=== PATIENT | male | born 1935 | race Caucasian/White ===

== ENCOUNTER 2019-08-22 12:18 | Inpatient (IN) | payer OTHER ==
[~2019-08-22] VITALS: Ht 177.8 cm; Wt 89.4 kg
[2019-08-22 12:19] VITALS: BP 115/62
[2019-08-22] MEDS ORDERED: LIPITOR40 MG PO (12:34)
[2019-08-22] MEDS ORDERED: ELIQUIS5 MG PO (12:34)
[2019-08-22] MEDS ORDERED: FLOMAX0.4 MG PO (12:35)
[2019-08-22] MEDS ORDERED: LASIX 20 MG TAB20 MG PO (12:35)
[2019-08-22] MEDS ORDERED: FOLIC ACID1 MG PO (12:35)
[2019-08-22] MEDS ORDERED: IMDUR 30 MG TAB30 M1 PO (12:36)
[2019-08-22] MEDS ORDERED: COREG6.25 MG PO (12:36)
[2019-08-22 12:37] LABS: HEMATOCRIT 33.3 % (42.0-52.0); HEMOGLOBIN 11.1 gm/dL (14.0-18.0); MCH 35.4 pg (26.0-34.0); MCHC 33.2 g/dL (28.0-37.0); MCV 106.5 fL (80.0-100.0); RBC 3.13 mil/uL (4.50-6.00); RDW 14.2 % (10.5-14.5); WBC 5.6 thou/uL (4.0-11.0)
[2019-08-22] MEDS ORDERED: LISINOPRIL10 MG PO (12:37)
[2019-08-22] MEDS ORDERED: TYLENOL 8 HOUR650 MG PO (12:39)
[2019-08-22 12:43] LABS: ANION GAP 10 mmol/L (7-16); BUN 39 mg/dL (7-18); CALCIUM 9.3 mg/dL (8.5-10.1); CHLORIDE 103 mmol/L (98-107); CO2 25 mmol/L (21-32); CREATININE 1.3 mg/dL (0.7-1.3); GLUCOSE 129 mg/dL (74-106); POTASSIUM 4.9 mmol/L (3.5-5.1); SODIUM 138 mmol/L (136-145)
[2019-08-22 12:53] LABS: ALBUMIN 3.6 g/dL (3.4-5.0); SGOT 20 U/L (15-37); SGPT 24 U/L (30-65); TOTAL BILIRUBIN 0.7 mg/dL (<0.1-1.0); TOTAL PROTEIN 7.2 g/dL (6.4-8.2); TROPONIN-I <0.06 ng/mL (<0.06)
[2019-08-22 13:28] LABS: ABSOLUTE NEUTROPHILS 3.9 thou/uL (1.4-8.2)
[2019-08-22 13:30] LABS: ANISOCYTOSIS SLIGHT; MACROCYTES SLIGHT; POIKILOCYTOSIS SLIGHT
[2019-08-22 13:31] LABS: BURR CELLS OCCASIONAL; LARGE PLATELETS OCCASIONAL; OVALOCYTES OCCASIONAL
[2019-08-22 13:32] LABS: PLATELET COUNT 131 thou/uL (150-400)
[2019-08-22 14:07] VITALS: BP 109/49
[2019-08-22 14:50] VITALS: BP 103/46
[2019-08-22 15:00] VITALS: BP 120/57
[2019-08-22 19:30] VITALS: BP 110/53
[2019-08-23 04:30] LABS: CREATININE 1.5 mg/dL (0.7-1.3); POTASSIUM 4.7 mmol/L (3.5-5.1)
[2019-08-23 04:32] LABS: HEMATOCRIT 30.2 % (42.0-52.0); HEMOGLOBIN 10.1 gm/dL (14.0-18.0); MCHC 33.4 g/dL (28.0-37.0); MCV 107.7 fL (80.0-100.0); RBC 2.8 mil/uL (4.50-6.00); RDW 14.5 % (10.5-14.5); WBC 8.6 thou/uL (4.0-11.0)
[2019-08-23 06:09] VITALS: BP 108/47
[2019-08-23 08:00] VITALS: BP 113/57
--- NOTE | 2019-08-23 10:19 | EKG ---
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 : 1935 Requested By: Kyle Stevenson Order Number: [id number] MD: Jose Boyd Measurements Intervals [place] Rate: 44 P: [place]: QRS: -11 QRSD: 127 T: 134 QT: 432 QTc: 370 Interpretive Statements Atrial flutter Left bundle branch block Compared to ECG 03/09/2002 11:27:57 Left bundle-branch block now present Sinus rhythm no longer present T-wave abnormality no longer present Possible ischemia no longer present Electronically Signed On 08-23-2019 10:19:30 MENS LOCKER ROOM ATTENDANT by Jose Boyd [email or web address] <ELECTRONICALLY SIGNED> By: Jose Boyd MD 08/23/19 1019 1215 Jose Boyd MD /EPI
[2019-08-23 16:00] VITALS: BP 98/49
[2019-08-23 19:17] VITALS: BP 112/55
[2019-08-24] VITALS (7 sets, daily range): BP systolic 97–174; BP diastolic 43–63
[2019-08-24 04:37] LABS: HEMATOCRIT 30.8 % (42.0-52.0); HEMOGLOBIN 10.3 gm/dL (14.0-18.0); MCH 36.2 pg (26.0-34.0); MCHC 33.3 g/dL (28.0-37.0); MCV 108.5 fL (80.0-100.0); RBC 2.84 mil/uL (4.50-6.00); RDW 14.6 % (10.5-14.5); WBC 9.1 thou/uL (4.0-11.0)
[2019-08-24 04:49] LABS: CALCIUM 9.4 mg/dL (8.5-10.1); POTASSIUM 5.7 mmol/L (3.5-5.1)
--- NOTE | 2019-08-24 08:01 | HC ---
[facility] [place] [address] CONSULTATION Name: SAEID PERALES Room #: 217-P [facility] IN M.R.#: [id number] Admission: 08/22/19 Attend Phys: Matt Raymundo MD Discharge: Date of : 34 Report #: [id number] THIS REPORT FOR: //name// CC: Matt Wadsworth DATE OF SERVICE: 08/23/2019 CARDIOLOGY CONSULTATION INDICATION: Syncope. HISTORY OF PRESENT ILLNESS: This 83-year-old gentleman with a history of, CAD status post PCI, atrial fibrillation, CHF, presenting with syncope. The patient has gait instability, uses a walker at home. He reports sitting on a stool and drinking some water. After that, he found himself on the floor. He did pass out apparently, but does not recall any events leading up to the event. Recently, he has been experiencing dyspnea with mild to moderate levels of physical exertion for the past 2 weeks. He follows with Cardiology at [facility] in [place], Dr. Terrazas. They did a recent echo revealing an EF in the 45% range. A recent nuclear stress test revealed ischemia in the anterior and inferior segments. 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 There is no history of chest pains, palpitations or orthopnea. PAST MEDICAL HISTORY: CAD status post PCI. His anginal equivalent is dyspnea on exertion. Recent nuclear stress test at [facility] was abnormal. History of CHF, hypertension, gait instability, hypercholesterolemia, atrial fibrillation. ALLERGIES: NAPROXEN. MEDICATIONS AT HOME: Include Eliquis 5 mg twice a day, Lipitor 40 mg, Flomax, furosemide 20 mg daily, Imdur 30 mg daily, Coreg 6.25 mg b.i.d., lisinopril 10 mg. SOCIAL HISTORY: Denies tobacco use. FAMILY HISTORY: Negative for premature CAD. REVIEW OF SYSTEMS: A full 10-point review of systems performed. Only the pertinent positives and negatives are described in the HPI. PHYSICAL EXAMINATION: VITAL SIGNS: Blood pressure is 113/60, heart rate is 60 beats per minute. GENERAL APPEARANCE: Elderly appearing male in no acute distress. [facility] [address] [place] [address] CONSULTATION Name: SAEID PERALES Room #: 217-P [facility] IN [facility].#: [id number] Admission: 08/22/19 Attend Phys: Matt Raymundo MD Discharge: Date of : 34 Report #: [id number] HEENT: Normocephalic, atraumatic. Oral mucosa moist. NECK: Supple. LUNGS: Clear to auscultation. CARDIAC: Irregularly irregular, S1, S2 positive. ABDOMEN: Soft, nontender. EXTREMITIES: No cyanosis, trace edema. ECG reveals atrial flutter with a heart rate of 44 beats per minute. LABORATORY VALUES: White count is 8.6, hemoglobin is 10.1, creatinine is 1.5, troponin is negative. ASSESSMENT AND PLAN: 1. Syncope, probably due to sick sinus syndrome. Will most likely require pacemaker implant as he requires beta rae therapy for underlying coronary artery disease. Hold Eliquis. 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 2. Coronary artery disease/PCI, reports dyspnea on exertion for the past 2 weeks This is his anginal equivalent. He was started on Imdur recently. Given his cardiac history, he will require resumption of beta rae therapy once he does undergo pacemaker implant. Hold Coreg for now. 3. Atrial flutter, stable heart rates, on no AV marybel blocking agents at this time. Hold Eliquis. 4. Hypertension, continue with medications. 5. Hypercholesterolemia, continue with statin therapy. <ELECTRONICALLY SIGNED> By: Jose Boyd MD 08/24/19 0801 1047 1611 Jose Boyd MD /nt
[2019-08-24 11:52] LABS: TSH 0.808 uIU/mL (0.358-3.740)
[2019-08-25] VITALS (10 sets, daily range): BP systolic 105–174; BP diastolic 50–112
[2019-08-25 05:04] LABS: URINE BILIRUBIN NEGATIVE (Negative); URINE BLOOD TRACE (Negative); URINE CLARITY CLOUDY; URINE COLOR YELLOW; URINE GLUCOSE-RANDOM* NEGATIVE (Negative); URINE KETONES NEGATIVE (Negative); URINE LEUKOCYTES 2+ (Negative); URINE NITRITE POSITIVE (Negative); URINE PROTEIN (DIPSTICK) TRACE (Negative); URINE UROBILINOGEN 0.2 E.U./dl (0.2-1.0)
[2019-08-25 05:08] LABS: URINE CREATININE-RANDOM* 101.7 mg/dL
[2019-08-25 05:15] LABS: CALCIUM 8.6 mg/dL (8.5-10.1); CREATININE 1.7 mg/dL (0.7-1.3); POTASSIUM 4.8 mmol/L (3.5-5.1)
[2019-08-25 05:16] LABS: HEMATOCRIT 29.7 % (42.0-52.0); HEMOGLOBIN 9.8 gm/dL (14.0-18.0); MCH 36.1 pg (26.0-34.0); MCHC 33.1 g/dL (28.0-37.0); MCV 109.1 fL (80.0-100.0); RBC 2.72 mil/uL (4.50-6.00); RDW 14.7 % (10.5-14.5)
[2019-08-25 05:18] LABS: CASTS None Seen /LPF (None Seen); CRYSTALS None Seen /LPF (None Seen); MUCUS 0-3 Light strn/LPF (None Seen); SQUAMOUS 0-3 Few /LPF (0-3); URINE RBC 0-2 Rare /HPF (0-2); WBC CLUMPS Few (None Seen)
--- NOTE | 2019-08-25 19:21 | EKG ---
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 : 1935 Requested By: Ahsan Dooley Order Number: [id number] MD: Stewart Johnson Measurements Intervals [place] Rate: 64 P: SD: QRS: -27 QRSD: 106 T: 141 QT: 410 QTc: 423 Interpretive Statements Atrial flutter with predominant 4:1 AV block Incomplete left bundle branch block Compared to ECG 08/22/2019 12:15:52 No significant change was found Electronically Signed On 08-25-2019 19:21:40 ANIMAL BREEDER by Stewart Johnson [email or web address] <ELECTRONICALLY SIGNED> By: Stewart Johnson MD, [facility] 08/25/19 1921 Stewart Johnson MD, [facility] /EPI
[2019-08-26] VITALS (7 sets, daily range): BP systolic 112–136; BP diastolic 51–73
[2019-08-26 04:38] LABS: ALBUMIN 2.6 g/dL (3.4-5.0); CALCIUM 8.4 mg/dL (8.5-10.1); CREATININE 1.3 mg/dL (0.7-1.3); PHOSPHORUS 2.9 mg/dL (2.5-4.9); POTASSIUM 4.5 mmol/L (3.5-5.1)
[2019-08-26 04:57] LABS: HEMATOCRIT 27.9 % (42.0-52.0); HEMOGLOBIN 9.4 gm/dL (14.0-18.0); MCH 36.5 pg (26.0-34.0); MCHC 33.6 g/dL (28.0-37.0); MCV 108.5 fL (80.0-100.0); RBC 2.57 mil/uL (4.50-6.00); RDW 14.1 % (10.5-14.5); WBC 6.9 thou/uL (4.0-11.0)
[2019-08-26 12:42] LABS: APTT 27.3 Seconds (24.5-32.8); FIBRINOGEN 386.4 mg/dL (210-360); INR 1.1; PROTIME 11.2 Seconds (9.3-11.4)
[2019-08-26 13:52] LABS: ABSOLUTE RETIC COUNT 0.0262 10^6/uL
[2019-08-26] MEDS ORDERED: ASPIRIN325 PO (15:25)
[2019-08-26] MEDS ORDERED: PREDNISONE 5 MG5 M1 PO (15:26)
[2019-08-26] MEDS ORDERED: KEFLEX500 M1 PO (15:29)
--- NOTE | 2019-08-28 09:33 | CATHLAB ---
[facility] [place] [address] INVASIVE PROCEDURE REPORT Name: SAEID PERALES Room #: 217-P [facility]#: [id number] Admission: 08/22/19 Attend Phys: Matt Raymundo MD Discharge: 08/26/19 Date of : 34 Report #: [id number] THIS REPORT FOR: //name// APPROVED REPORT Study performed: 08/25/2019 13:50:29 Patient Status: In-Patient Room #: Event Personnel: Fan Duggan It Service Technician, Vanessa Hughes RTR Scrub, Maxi Cabral RTR Monitor, Luis Sullivan RN, Diogo Srivastava RTR Scrub Alicia Romero CVT Monitor Exam: Insertion of Single Chamber Permanent Pacemaker, supervision of conscious sedation Indications: Sick Sinus Syndrome/Tachy Mario Syndrome The patient is a 83 year-old male with a history of . Conscious Sedation Start time: 1417 End Time: 1515 Versed 4 mg Demerol IV 25 mg total Implanted Devices: Ventricle Lead Ref 2088TC-58 Exp 07/13/2022 SN [id number] DeviceRef [id number] Exp08/13/2020 [id number] V Lead Capture 1.25V @0.4ms (Bi) Sense >12.0mV (Bi) Lead Impedance 650 omhs (Bi) Procedure The patient underwent informed consent. We discussed the details of the procedure including the risks, which include, but not limited to bleeding, infection, vascular damage, cardiac perforation, and pneumothorax. He understood these risks and was willing to proceed. As such, he was brought to the EP/Cardiac Catheterization laboratory in a fasting and sedated state and prepped and draped in a The patient underwent conscious sedation, with no related complications. The patient was brought to the EP/Cardiac Catheterization laboratory and the left chest and shoulder were prepped and draped in a sterile manner. The left subclavian region was infiltrated with 2% Lidocaine subcutaneous anesthesia. A transverse incision was made in the left upper chest cavity. The subcutaneous pocket was formed via blunt dissection. Percutaneous venous access was achieved and an introducer sheath was inserted into [address] [address] INVASIVE PROCEDURE REPORT Name: SAEID PERALES Room #: 217-P [facility] IN [facility]#: [id number] Admission: 08/22/19 Attend Phys: Matt Raymundo MD Discharge: 08/26/19 Date of : 34 Report #: [id number] the left Subclavian vein. Sheaths were positions using the modified Seldinger technique Through the introducer sheaths the ventricular lead wire was positioned in the right atrial appendage and right ventricular apex respectively. Capturing and sensing thresholds were verified. Electrode Parameters R Wave: >12mV Ventricular Threshold: 1.25 Ventricular Resistance: 650 Single Chamber The atrial and ventricular leads were then secured using 2.0 ethibond sutures. The subcutaneous pocket was irrigated with ancef antibiotic solution.The ventricular lead was attached to the appropriate receptacle on the pulse generator and set screws firmly tightened to insure adequate contact and stability. The lead and pulse generator were placed into the subcutaneous pocket. Sharp and sponge counts were confirmed to be correct. At this time the pocket was closed subcutaneously with a 2-0 ethibon and the skin was closed with a 3.0 Vicryl. The operative site was dressed in sterile fashion with steri strips and the patient was transferred to the floor in stable condition. Complications The patient tolerated the procedure well and there were no complications associated with the procedure. Findings Specimens Removed: N/A Estimated Blood Loss: 5cc Conclusion 1. Successful implantation of a [employer] medical VVI single lead pacemaker Recommendations 1. Routine post implantation protocol <ELECTRONICALLY SIGNED> By: Fan Duggan MD 08/28/1933 1 1 Fan Duggan MD /INF
[2019-08-28 15:08] LABS: GLOBULIN TOTAL 3.3 g/dL (2.2-3.9); M-SPIKE Not Observed g/dL (Not Observed)
--- NOTE | 2019-09-12 11:49 | HC ---
[facility] [place] [address] CONSULTATION Name: SAEID PERALES Room #: 217-P [facility] IN ..#: [id number] Admission: 08/22/19 Attend Phys: Matt Raymundo MD Discharge: 08/26/19 Date of : 34 Report #: [id number] THIS REPORT FOR: //name// CC: Matt Wadsworth DATE OF SERVICE: 08/24/2019 NEPHROLOGY CONSULTATION REASON FOR CONSULTATION: Acute kidney injury. HISTORY OF PRESENT ILLNESS: This is an 83-year-old male who on the day of admission had a syncopal episode. Details surrounding that are documented in his other notes. He ended up having atrial flutter with some bradycardia and was hypotensive. He had heart rate in the 40s. He had blood pressure is only around 100 systolic. He was admitted to the hospital and has been on the monitor ever since. He has had a couple of frankly low blood pressures running in the 90/50 range. His heart rate is running more in the 50-60 range now. Oxygenation has continued to be okay. He has been afebrile. On his admitting labs, his creatinine level was 1.3. He is unaware of what his baseline creatinine level is. By yesterday morning, it was up to 1.5. Yesterday, he also had a development of symptoms of acute gout in his right great toe. He received IV Toradol 30 mg and a single dose yesterday. He states he has been passing urine, although not as much as normal. His creatinine level today is up to 2.0 with a BUN of 51 and a potassium of 5.7. His bicarbonate is 24. The patient knows of no prior renal-related problems. He is chronically on some lisinopril, which sounds to be for heart failure. His dose listed on his medication list is 10 mg daily, although his daughter who is a physician thinks that he was only taking a portion of that possibly only 2.5 mg daily. He also is chronically on some furosemide and things were fairly well controlled. He is on some carvedilol in addition. He knows of no prior renal-related problems. He did have a TUR of the prostate remotely. He is on some tamsulosin 0.4 mg daily, chronically. He states he has had another syncopal episode when he took some naproxen, so he stays away from any nonsteroidals until we got the Toradol yesterday. No history of nephrolithiasis, hematuria or proteinuria. No UA was done so far on this admission. PAST MEDICAL HISTORY: Coronary artery disease, prior coronary artery stents. He has had some heart failure. He has the atrial flutter. He is chronically anticoagulated with Eliquis. This sounds to be at least his third episode of syncope over the years. He has some underlying COPD by history. He also has some hyperlipidemia. Again, he is unaware of any chronic kidney diagnosis. MEDICATIONS: On admission include the lisinopril listed at 10 mg daily, [address] [address] CONSULTATION Name: SAEID PERALES Room #: 217-P [facility] IN ..#: [id number] Admission: 08/22/19 Attend Phys: Matt Raymundo MD Discharge: 08/26/19 Date of : 34 Report #: [id number] carvedilol 6.25 mg b.i.d., tamsulosin 0.4 mg daily, furosemide 20 mg daily, Eliquis 5 mg b.i.d., atorvastatin 40 mg daily, folate 1 mg daily, isosorbide mononitrate 30 mg daily. Since admission, he has been taken off the lisinopril and the spironolactone, carvedilol has been held. He has been on 10 mg of prednisone a day for his gout, furosemide has also been held. Other medications the same. ALLERGIES: NAPROXEN, WHICH WAS ASSOCIATED WITH ONE EPISODE OF SYNCOPE. FAMILY HISTORY: Negative for any renal disease. SOCIAL HISTORY: The patient is and accompanied by his at this time. He is retired and lives in [place], [place]. Also, accompanying him at this time are 2 separate daughters, one of them is biopsychologist/oncologist at the [employer] in [place], so she has helpful in providing some additional medical history. REVIEW OF SYSTEMS: Currently, he is feeling okay. He is getting ready to eat dinner. He denies dyspnea, cough, or chest pain at this time. He says he remembers falling when he had a syncopal episode, but then does not remember after that for a while. Currently, no chest pain. He denies nausea or vomiting. He says he has no difficulty voiding urine as long as he takes tamsulosin. Recently, he has had no problems with peripheral edema. He is weak, has some unstable gait. No recent fevers, chills or sweats. PHYSICAL EXAMINATION: GENERAL: Very pleasant elderly appearing male accompanied by his family as noted above. He is in no acute distress at this time. VITAL SIGNS: Most recent recorded blood pressure 97/50 with a heart rate of 67, oxygen saturation 96%, temperature is 97.4 degrees Fahrenheit. HEENT: Shows pupils are 3 mm and reactive. Sclerae nonicteric. Oral mucosa is moist. NECK: Supple without adenopathy, thyromegaly, JVD or bruit. CHEST: Shows a few decreased breath sounds bilaterally. No rales, rhonchi or wheezes. CARDIOVASCULAR: Heart has a borderline bradycardia and appears regular on auscultation. ABDOMEN: Has active bowel sounds, is soft and nontender. EXTREMITIES: Show no peripheral edema. He has diminished pedal pulses. The right great toe is much less hot and/or tender than it sounds like it was yesterday. LABORATORY DATA: From today, sodium 134, potassium 5.7, chloride 102, bicarbonate 24, BUN 51, creatinine 2.0, calcium 9.4, white count 9.1, hemoglobin 10.3, hematocrit 30.8, platelets 108,000, MCV of 108.5. No urine studies available. [address] [address] CONSULTATION Name: SAEID PERALES Room #: 217-[facility] IN [facility].#: [id number] Admission: 08/22/19 Attend Phys: Matt Raymundo MD Discharge: 08/26/19 Date of : 34 Report #: [id number] ASSESSMENT: 1. Acute kidney injury. He presented with a slightly greater than normal creatinine on admission. He came in and he was hypotensive and bradycardic. He was chronically on a small dose of lisinopril I think the hemodynamic instability from rising creatinine yesterday to 1.5. He then received a single dose of Toradol. His creatinine is up to 2 today. His volume is fairly good on exam. Blood pressure is still marginal, so I think he does need some additional IV fluids. He will take a while for both the lisinopril and the Toradol are clear I expect this will be a reversible process and he should see improvement in his creatinine over the next couple of days. I would keep him off of the lisinopril at this time. He can get diuretics as needed if his volume level starts to increase too much. We will certainly strive for a more normal blood pressure. I am going to get a urine studies. He needs an ultrasound to make sure anatomically. His kidneys are okay. Again, avoid any additional Toradol. I reviewed all this with the patient and his family. They asked some good questions and seems to understand his current status. 2. Syncope on presentation with hypotension and bradycardia those appear to be improving at this time. 3. Coronary artery disease by history. There is concern he is now recurrently ischemic. There has been talk of doing a cardiac catheterization. From a renal standpoint, his creatinine level is rising and this would be a bad time to do an elective cardiac catheterization. Once his renal function improves, that would be a much better option. As always, if he needs an emergent catheterization that was then take precedence and Cardiology is well aware of that. 4. Atrial flutter with bradycardia. Workup is ongoing with Cardiology. 4. Acute gout, improving. I will keep him on the prednisone, but certainly avoid any other Toradol. PLAN: 1. He is currently on some normal saline at 125 mL per hour. I will keep him on that. It can be slowed if he starts having more dyspnea or signs of volume overload. At this point, he will get another liter to a liter and half overnight and that should be okay. 2. Check urinalysis as well as fractional excretion of sodium. 3. Renal ultrasound in the morning. 4. Repeat labs in the morning. 5. No further Toradol. 6. He is already off of the lisinopril and I would keep him off of it until his renal function improves. 67 We will follow along the care of this very pleasant gentleman. <ELECTRONICALLY SIGNED> By: Giovanny Mckeon MD 09/12/19 1149 1756 0511 Giovanny Mckeon MD /carlos
== END 2019-08-26 16:30 | disposition home health service (06) | DRG 242 ==
LOC: ER 12:18 → EROBS 14:08 → 2N 14:08
PROVIDERS: Emergency Medicine; Hospitalist; Internal Medicine Hematology & Oncology; Internal Medicine Nephrology; ADMIT Hospitalist
PROC: 02HK3JZ Insertion of Pacemaker Lead into Right Ventricle, Percutaneous Approach (ICD-10-PCS; principal; 2019-08-25)
PROC: 0JH604Z Insertion of Pacemaker, Single Chamber into Chest Subcutaneous Tissue and Fascia, Open Approach (ICD-10-PCS; principal; 2019-08-25)
DX: I49.5 Sick sinus syndrome (principal); E43 Unspecified severe protein-calorie malnutrition; I48.92 Unspecified atrial flutter; N17.9 Acute kidney failure, unspecified; N39.0 Urinary tract infection, site not specified; I13.0 Hypertensive heart and chronic kidney disease with heart failure and stage 1 through stage 4 chronic kidney disease, or unspecified chronic kidney disease; E78.5 Hyperlipidemia, unspecified; I48.91 Unspecified atrial fibrillation; J44.9 Chronic obstructive pulmonary disease, unspecified; I25.10 Atherosclerotic heart disease of native coronary artery without angina pectoris; I50.9 Heart failure, unspecified; E78.00 Pure hypercholesterolemia, unspecified; I95.9 Hypotension, unspecified; M10.9 Gout, unspecified; I45.9 Conduction disorder, unspecified; D53.9 Nutritional anemia, unspecified; N40.0 Benign prostatic hyperplasia without lower urinary tract symptoms; I25.9 Chronic ischemic heart disease, unspecified; K59.00 Constipation, unspecified; E87.6 Hypokalemia; N18.9 Chronic kidney disease, unspecified; E87.5 Hyperkalemia; Z79.899 Other long term (current) drug therapy; Z90.81 Acquired absence of spleen; Z88.8 Allergy status to other drugs, medicaments and biological substances; Z79.01 Long term (current) use of anticoagulants; Z95.5 Presence of coronary angioplasty implant and graft; Z68.28 Body mass index [BMI] 28.0-28.9, adult
CPT/HCPCS: 10081; 10194